=== PATIENT | female | born 1960 | race Caucasian/White ===

== ENCOUNTER → 2017-04-11 13:49 | Emergency (ER) | payer OTHER ==
--- NOTE | 2017-04-11 14:35 | RAD ---
HISTORY: Palpitation COMPARISONS: None VIEWS: 1: frontal portable view of the chest at 2:22 PM FINDINGS: LINES AND TUBES: None. CARDIOMEDIASTINAL SILHOUETTE: The cardiomediastinal silhouette is normal for portable technique. PLEURA: The costophrenic angles are sharp. No pleural abnormalities are noted. LUNG PARENCHYMA: The lungs are clear. ABDOMEN: The upper abdomen is clear. There is no subphrenic gas. BONES AND SOFT TISSUES: No bone or soft tissue abnormalities are noted. IMPRESSION: NO ACTIVE CARDIOPULMONARY DISEASE.
[2017-04-11 14:59] LABS: Hematocrit 41 % (35-47); Mean Corpuscular HGB Conc 34 g/dl (31-36); Mean Corpuscular Hemoglobin 32 pg (27-31); Mean Corpuscular Volume 92 fL (80-97); Mean Platelet Volume 10 um3 (7.4-10.4); Red Blood Count 4.39 10^6/ul (4.0-5.4); Red Cell Distribution Width 14 % (10.5-15); White Blood Count 5.9 10^3/ul (3.5-10.8)
[2017-04-11 15:16] LABS: Albumin 3.9 g/dL (3.2-5.2); Calcium 9.4 mg/dL (8.6-10.3); EGFR African American 78.8 (>60); EGFR Non-African American 61.3 (>60); Globulin 2.7 g/dL (2-4); Potassium 3.8 mmol/L (3.5-5.0); Total Bilirubin 0.6 mg/dL (0.2-1.0); Total Protein 6.6 g/dL (6.4-8.9)
[2017-04-11 15:17] LABS: Troponin I 0.03 ng/mL (<0.04)
--- NOTE | 2017-04-11 15:34 | ED ---
Aundrea Sierra Thomas, scribed for Katheryn Walters MD on 04/11/17 at 1511 . Palpitations / Dysrhythmia - HPI Summary HPI Summary: The pt is a 56 y/o F presenting to the ED c/o palpitations characterized as racing that occurred last night at 22:00. She was seen at her PMD this AM, who referred her to [facility] where bloodwork showed a troponin of 0.04. She did not wake up with palpitations. She wears a FitBit and the patient says that her heartrate was 144 BPM last night. Per her FitBit data, these palpitations continued throughout the night. She notes a flutter once in a while prior to yesterday. In the ED, her heartrate is 73 BPM. Pt additionally c/o nausea and dizziness yesterday when the palpitations occurred. Pt denies SOB, CP, and diaphoresis. She did have a few gins last night. She notes that in the past when she drinks her HR does tend to increase. - History of Current Complaint Chief Complaint: EDDysrhythmPalp Time Seen by Provider: 04/11/17 14:08 Hx Obtained From: Patient Onset/Duration: Lasting Days - onset last night at 22:00 and continued through the night, Resolved Timing: Constant Character: Fast - at 144 BPM Aggravating: Nothing Alleviating: Nothing Associated Signs & Symptoms: Dizzy - yesterday, Nausea - yesterday Related History: Similar Episode/Dx as - She does note "a flutter once in a while" prior to yesterday PMH/Surg Hx/FS Hx/Imm Hx Previously Healthy: Yes Cardiovascular History: Denies: Hx Myocardial Infarction Respiratory History: Denies: Hx Chronic Obstructive Pulmonary Disease (COPD) Infectious Disease History: Yes Infectious Disease History: Denies: Traveled Outside the [place] in Last 30 Days - Family History Known Family History: Negative: Cardiac Disease - Social History Lives: With Family Alcohol Use: Weekly - although use tends to be in binges Hx Substance Use: No Substance Use Type: Reports: None Hx Tobacco Use: No Smoking Status (MU): Never Smoked Tobacco Review of Systems Negative: Skin Diaphoresis Positive: Palpitations - fast, 144 BPM, onset last night and through the night but resolved in the ED. Negative: Chest Pain Negative: Shortness Of Breath Positive: Nausea - yesterday and none today Neurological: Other - Dizziness yesterday and none today All Other Systems Reviewed And Are Negative: Yes Physical Exam Triage Information Reviewed: Yes Vital Signs On Initial Exam: Initial Vitals Temp Pulse Resp BP Pulse Ox 97.7 F 73 16 151/97 100 04/11/17 13:51 04/11/17 13:51 04/11/17 13:51 04/11/17 13:51 04/11/17 13:51 Vital Signs Reviewed: Yes Appearance: Positive: Well-Appearing, No Pain Distress Skin: Positive: Warm, Skin Color Reflects Adequate Perfusion, Dry Eyes: Positive: EOMI, AMNA ENT: Positive: Pharynx normal, TMs normal Neck: Positive: Supple, Nontender Respiratory/Lung Sounds: Positive: Clear to Auscultation, Breath Sounds Present. Negative: Rales, Rhonchi, Wheezes Cardiovascular: Positive: RRR, Other - No gallop. Negative: Murmur, Rub Abdomen Description: Positive: Nontender, Soft. Negative: Distended, Guarding, Other: - No rebound Bowel Sounds: Positive: Present Musculoskeletal: Positive: Strength/ROM Intact. Negative: Edema Left, Edema Right Neurological: Positive: Sensory/Motor Intact, Alert, Oriented to Person Place, Time, CN Intact II-III Psychiatric: Positive: Affect/Mood Appropriate - Gemini Coma Scale Coma Scale Total: 15 Diagnostics - Vital Signs Vital Signs Temp Pulse Resp BP Pulse Ox 04/11/17 13:51 97.7 F 73 16 151/97 100 - Laboratory Lab Results: Lab Results 04/11/17 Range/Units 14:49 WBC 5.9 (3.5-10.8) 10^3/ul RBC 4.39 (4.0-5.4) 10^6/ul Hgb 14.0 (12.0-16.0) g/dl Hct 41 (35-47) % MCV 92 (80-97) fL MCH 32 H (27-31) pg MCHC 34 (31-36) g/dl RDW 14 (10.5-15) % Plt Count 172 (150-450) 10^3/ul MPV 10 (7.4-10.4) um3 Neut % (Auto) 57.5 (38-83) % Lymph % (Auto) 30.5 (25-47) % [place] % (Auto) 9.7 H (1-9) % Eos % (Auto) 1.8 (0-6) % Baso % (Auto) 0.5 (0-2) % Absolute Neuts (auto) 3.4 (1.5-7.7) 10^3/ul Absolute Lymphs (auto) 1.8 (1.0-4.8) 10^3/ul Absolute Monos (auto) 0.6 (0-0.8) 10^3/ul Absolute Eos (auto) 0.1 (0-0.6) 10^3/ul Absolute Basos (auto) 0 (0-0.2) 10^3/ul Absolute Nucleated RBC 0.01 10^3/ul Nucleated RBC % 0.1 Result Diagrams: 04/11/17 14:49 04/11/17 14:49 Lab Statement: Any lab studies that have been ordered have been reviewed, and results considered in the medical decision making process. - Radiology CXR Xray Interpretation: No Acute Changes - No active cardiopulmonary disease. ED physician has reviewed this report and agrees. Radiology Interpretation Completed By: Radiologist - EKG 14:02 Cardiac Rate: NL - 66 BPM EKG Interpretation: Normal EKG. Course/Dx - Course Course Of Treatment: 56 yo sent by her pmd after a trop of .04. she had palpitations during the night and when she looked at her fit bit in the am she noted sustained rates of 140's. She is assymptomatic now normal ekg normal cxr and labs and trop is .03. She already has close followup with her pmd for a holter monitor and cardiolgist - Diagnoses Provider Diagnoses: Palpitations Discharge - Discharge Plan Condition: Stable Disposition: HOME Patient Education Materials: Palpitations (ED) Referrals: Sage CORNELIUS,Wyatt Abdi [Primary Care Provider] - 2 Days The documentation as recorded by the Aundrea barros Thomas accurately reflects the service I personally performed and the decisions made by me, Katheryn Walters MD.
[2017-04-11 15:51] LABS: TSH (Thyroid Stimulating Horm) 1.86 mcIU/mL (0.34-5.60)
[2017-04-11 16:09] VITALS: BP 141/77
== END | disposition home or self-care (01) ==
LOC: ED 13:49
DX: R00.2 Palpitations (principal)
CPT/HCPCS: 36415; 71010; 80053; 84443; 84484; 85025; 93005; 99282

== ENCOUNTER 2017-04-13 22:24 | Observation (INO) | payer OTHER ==
[2017-04-14] MEDS ORDERED: Aspirin Low Dose CHEW TAB* 81 MG PO ONE (00:01)
[2017-04-14 00:46] LABS: Hematocrit 38 % (35-47); Hemoglobin 13.2 g/dl (12.0-16.0); Mean Corpuscular HGB Conc 34 g/dl (31-36); Mean Corpuscular Hemoglobin 32 pg (27-31); Mean Corpuscular Volume 92 fL (80-97); Mean Platelet Volume 10 um3 (7.4-10.4); Red Blood Count 4.19 10^6/ul (4.0-5.4); Red Cell Distribution Width 13 % (10.5-15); White Blood Count 5.3 10^3/ul (3.5-10.8)
[2017-04-14 01:02] LABS: Albumin 3.9 g/dL (3.2-5.2); BUN/Creatinine Ratio 17.1 (8-20); Calcium 9.3 mg/dL (8.6-10.3); EGFR African American 93.4 (>60); EGFR Non-African American 72.6 (>60); Globulin 2.7 g/dL (2-4); Potassium 3.9 mmol/L (3.5-5.0); Total Bilirubin 0.5 mg/dL (0.2-1.0); Total Protein 6.6 g/dL (6.4-8.9)
[2017-04-14 01:03] LABS: Troponin I 0.02 ng/mL (<0.04)
--- NOTE | 2017-04-14 01:04 | ED ---
Eduin Sierra Angela, scribed for Deni Melchor on 04/14/17 at 0016 . HPI Chest Pain - HPI Summary HPI Summary: This pt is a 56 y/o female presenting to [facility] c/o chest pain today. Pt reports she was seen in the ED 3 days ago for high heart rate and positive heart enzymes. Pt denies nausea, vomiting, SOB. She denies pain with deep breathing. Pt currently has no chest pain. Pt has no hx of smoking. No FHx of cardiac disease. - History of Current Complaint Chief Complaint: EDChestPainROMI Time Seen by Provider: 04/13/17 23:45 Hx Obtained From: Patient Onset/Duration: Started Hours Ago Timing: Lasting Hours Pain Intensity: 0 Pain Scale Used: 0-10 Numeric Chest Pain Location: Diffuse Chest Pain Radiates: No Aggravating Factor(s): Nothing Alleviating Factor(s): Spontaneous Resolution Associated Signs and Symptoms: Positive: Chest Pain. Negative: Headaches, Weakness, Shortness of Breath, Fever, Chills, Abdominal Pain - Allergy/Home Medications Allergies/Adverse Reactions: Allergies Allergy/AdvReac Type Severity Reaction Status Date / Time No Known Allergies Allergy Verified 04/13/17 22:39 PMH/Surg Hx/FS Hx/Imm Hx Endocrine/Hematology History: Denies: Hx Diabetes Cardiovascular History: Denies: Hx Hypertension, Hx Myocardial Infarction Respiratory History: Denies: Hx Chronic Obstructive Pulmonary Disease (COPD) Infectious Disease History: No Infectious Disease History: Denies: Traveled Outside the [place] in Last 30 Days - Family History Known Family History: Negative: Cardiac Disease - Social History Alcohol Use: Weekly Hx Substance Use: No Substance Use Type: Reports: None Hx Tobacco Use: No Smoking Status (MU): Never Smoked Tobacco Review of Systems Negative: Fever, Chills Positive: Chest Pain - now resolved Negative: Shortness Of Breath Negative: Vomiting, Diarrhea, Nausea Genitourinary: Negative Skin: Negative Negative: Headache, Weakness, Paresthesia All Other Systems Reviewed And Are Negative: Yes Physical Exam Triage Information Reviewed: Yes Vital Signs On Initial Exam: Initial Vitals Temp Pulse Resp BP Pulse Ox 97.7 F 54 16 158/87 100 04/13/17 22:39 04/13/17 22:39 04/13/17 22:39 04/13/17 22:39 04/13/17 22:39 Vital Signs Reviewed: Yes Appearance: Positive: Well-Appearing, No Pain Distress Skin: Positive: Warm, Skin Color Reflects Adequate Perfusion, Dry Head/Face: Positive: Normal Head/Face Inspection Eyes: Positive: EOMI, AMNA ENT: Positive: Normal ENT inspection Neck: Positive: Supple, Nontender Respiratory/Lung Sounds: Positive: Clear to Auscultation, Breath Sounds Present Cardiovascular: Positive: RRR, Pulses are Symmetrical in both Upper and Lower Extremities Abdomen Description: Positive: Nontender, Soft Bowel Sounds: Positive: Present Musculoskeletal: Positive: Normal, Strength/ROM Intact Neurological: Positive: Normal, Sensory/Motor Intact, Alert, Oriented to Person Place, Time - [place] Coma Scale Coma Scale Total: 15 Diagnostics - Vital Signs Vital Signs Temp Pulse Resp BP Pulse Ox 04/13/17 23:06 53 99 04/13/17 23:05 155/81 04/13/17 22:39 97.7 F 54 16 158/87 100 - Laboratory Result Diagrams: 04/14/17 00:20 04/14/17 00:20 Lab Statement: Any lab studies that have been ordered have been reviewed, and results considered in the medical decision making process. - Radiology Chest XR Xray Interpretation: No Acute Changes - Chest XR is negative. Radiology Interpretation Completed By: ED Physician - EKG 3077 Cardiac Rate: Bradycardia EKG Rhythm: Sinus Rhythm EKG Interpretation: No acute changes Chest Pain Course/Dx - Course Assessment/Plan: Pt is a 56 y/o female presenting to [facility] c/o chest pain today. Elevated BP noted. Bloodwork, EKG, and chest XR were obtained. Chest XR is negative. I discussed the pt's case with Dr. English. He will admit the pt. - Diagnoses Provider Diagnoses: Chest pain, rule out acute myocardial infarction - Provider Notifications Discussed Care Of Patient With: Vivek English Instructed by Provider To: Other - I discussed the pt's case with Dr. English. he will admit the pt. Discharge - Discharge Plan Condition: Stable Disposition: ADMITTED TO [facility] Referrals: Sage CORNELIUS,Wyatt Abdi [Primary Care Provider] - The documentation as recorded by the Eduin barros Angela accurately reflects the service I personally performed and the decisions made by , Deni Melchor.
[2017-04-14] MEDS ORDERED: traMADol TAB* 50 MG PO PRN (04:11)
[2017-04-14] MEDS ORDERED: Acetaminophen TAB* 325 MG PO PRN (04:11)
[2017-04-14] MEDS ORDERED: Ondansetron INJ* 2 MG/ML VIAL IV PRN (04:11)
--- NOTE | 2017-04-14 04:38 | HP ---
H&P (Free Text) History and Physical: PCP: Iqra Cazares MD Date/Time: 04/14/2017 0430 CC: chest pain HPI: Mrs Kumar is a 56YO obese female who was seen by her PCP Friday for palpitations she experienced on . Lab draw from that visit revealed an elevated troponin prompting referral to [facility] where troponin was rechecked, found to be negative, and she was discharged. Yesterday she awoke with (not from ) non-exertional dull L superior chest discomfort radiating into the L shoulder and R superior chest. The pain has been mild to mod, continuous, but waxing and waning all day. There have been no exacerbating or alleviating factors. She denies SOB, nausea, further palpitations, light-headedness, or sweats. PMedHx denies Medications Nursing to reconcile. Allergies No Known Allergies Allergy (Verified 04/13/17 22:39) PSurgHx SocHx: no tobacco, 2 alcoholic drinks weekly, no recreational drugs; lives with her ; works as a teacher for [employer]; full code status FamHx: Mother passed of a cerebral aneurysm rupture at age 64. Father is alive at 83 with HTN & AFIB. Brother has HTN. Sister has HLD. ROS: as above, otherwise reviewed and all were negative vitals: Vital Signs Temp 36.5 C 04/13/17 22:39 Pulse 53 04/14/17 03:00 Resp 19 04/14/17 03:00 BP 111/69 04/14/17 03:00 Pulse Ox 95 04/14/17 03:00 Intake & Output 04/13/17 04/13/17 04/14/17 11:59 23:59 11:59 Weight 108.409 kg Constitutional: NAD, normally developed, obese white female HEENM: atraumatic; sclera/conjunctiva: non-icteric/clear OD/injected OS; blephara: normal; hearing: clinically intact; oropharynx: clear, mucosa moist Neck: soft tissue: non-tender; thyroid: normal Pulmonary: clear to auscultation bilaterally, good aeration, no accessory muscle use CV: RR/RR, normal S1S2, no carotid bruit, no jugular venous distention, 2+ B DP/ PT, trace BLE edema Abdominal: soft, non-distended, non-tender, no rebound/guarding/rigidity, normoactive bowel sounds, no hepatosplenomegaly or masses, no costovertebral angle tenderness Musculoskeletal: general: grossly intact; gait: stable Integumental: normal appearance and texture of exposed skin Psychiatric orientation: AA&O to PPS affect: calm mood: cooperative eye contact: fair content: reliable responses: timely insight: good Testing: Lab Results 04/14/17 04/14/17 04/14/17 Range/Units 00:20 00:20 00:20 WBC 5.3 (3.5-10.8) 10^3/ul RBC 4.19 (4.0-5.4) 10^6/ul Hgb 13.2 (12.0-16.0) g/dl Hct 38 (35-47) % MCV 92 (80-97) fL MCH 32 H (27-31) pg MCHC 34 (31-36) g/dl RDW 13 (10.5-15) % Plt Count 169 (150-450) 10^3/ul MPV 10 (7.4-10.4) um3 Neut % (Auto) 58.1 (38-83) % Lymph % (Auto) 31.8 (25-47) % [place] % (Auto) 7.2 (1-9) % Eos % (Auto) 2.5 (0-6) % Baso % (Auto) 0.4 (0-2) % Absolute Neuts (auto) 3.1 (1.5-7.7) 10^3/ul Absolute Lymphs (auto) 1.7 (1.0-4.8) 10^3/ul Absolute Monos (auto) 0.4 (0-0.8) 10^3/ul Absolute Eos (auto) 0.1 (0-0.6) 10^3/ul Absolute Basos (auto) 0 (0-0.2) 10^3/ul Absolute Nucleated RBC 0 10^3/ul Nucleated RBC % 0.1 INR (Anticoag Therapy) (0.89-1.11) APTT (26.0-36.3) seconds Sodium 139 (133-145) mmol/L Potassium 3.9 (3.5-5.0) mmol/L Chloride 107 (101-111) mmol/L Carbon Dioxide 26 (22-32) mmol/L Anion Gap 6 (2-11) mmol/L BUN 14 (6-24) mg/dL Creatinine 0.82 (0.51-0.95) mg/dL Est GFR ( Amer) 93.4 (>60) Est GFR (Non-Af Amer) 72.6 (>60) BUN/Creatinine Ratio 17.1 (8-20) Glucose 99 (70-100) mg/dL Lactic Acid (0.5-2.0) mmol/L Calcium 9.3 (8.6-10.3) mg/dL Total Bilirubin 0.50 (0.2-1.0) mg/dL AST 25 (13-39) U/L ALT 31 (7-52) U/L Alkaline Phosphatase 48 (34-104) U/L Troponin I 0.02 (<0.04) ng/mL B-Natriuretic Peptide 45 ( - 100) pg/mL Total Protein 6.6 (6.4-8.9) g/dL Albumin 3.9 (3.2-5.2) g/dL Globulin 2.7 (2-4) g/dL Albumin/Globulin Ratio 1.4 (1-3) 04/14/17 04/14/17 04/14/17 Range/Units 00:20 00:20 03:35 WBC (3.5-10.8) 10^3/ul RBC (4.0-5.4) 10^6/ul Hgb (12.0-16.0) g/dl Hct (35-47) % MCV (80-97) fL MCH (27-31) pg MCHC (31-36) g/dl RDW (10.5-15) % Plt Count (150-450) 10^3/ul MPV (7.4-10.4) um3 Neut % (Auto) (38-83) % Lymph % (Auto) (25-47) % [place] % (Auto) (1-9) % Eos % (Auto) (0-6) % Baso % (Auto) (0-2) % Absolute Neuts (auto) (1.5-7.7) 10^3/ul Absolute Lymphs (auto) (1.0-4.8) 10^3/ul Absolute Monos (auto) (0-0.8) 10^3/ul Absolute Eos (auto) (0-0.6) 10^3/ul Absolute Basos (auto) (0-0.2) 10^3/ul Absolute Nucleated RBC 10^3/ul Nucleated RBC % INR (Anticoag Therapy) 0.86 L (0.89-1.11) APTT 26.8 (26.0-36.3) seconds Sodium (133-145) mmol/L Potassium (3.5-5.0) mmol/L Chloride (101-111) mmol/L Carbon Dioxide (22-32) mmol/L Anion Gap (2-11) mmol/L BUN (6-24) mg/dL Creatinine (0.51-0.95) mg/dL Est GFR ( Amer) (>60) Est GFR (Non-Af Amer) (>60) BUN/Creatinine Ratio (8-20) Glucose (70-100) mg/dL Lactic Acid 0.7 (0.5-2.0) mmol/L Calcium (8.6-10.3) mg/dL Total Bilirubin (0.2-1.0) mg/dL AST (13-39) U/L ALT (7-52) U/L Alkaline Phosphatase (34-104) U/L Troponin I 0.02 (<0.04) ng/mL B-Natriuretic Peptide ( - 100) pg/mL Total Protein (6.4-8.9) g/dL Albumin (3.2-5.2) g/dL Globulin (2-4) g/dL Albumin/Globulin Ratio (1-3) ECG, personally reviewed: sinus bradycardia rate 56, no ischemia, isolated lead III T-wave inversion CXR, personally reviewed: no acute process Impression: 56F presenting with chest pain for r/o ACS DIAGNOSIS & PLAN Primary chest pain r/o ACS : aspirin : hold beta-ry 2nd bradycardia : supplemental oxygen : telemetry : trend troponin : exercise stress test in AM : consider cardiology consult pending above results : supportive care Admission Rational: CDU observation for r/o ACS DVTp: heparin SQ Code Status: full HCP:
[2017-04-14] MEDS ORDERED: Omeprazole CAP* 20 MG PO SCH (06:00)
[2017-04-14 06:48] LABS: HDL Cholesterol 40.9 mg/dL
[2017-04-14 06:51] LABS: Troponin I 0.02 ng/mL (<0.04)
--- NOTE | 2017-04-14 07:48 | RAD ---
HISTORY: Chest pain COMPARISONS: April 11, 2017 VIEWS: 1: frontal portable view of the chest at 12:24 AM FINDINGS: LINES AND TUBES: None. CARDIOMEDIASTINAL SILHOUETTE: The cardiomediastinal silhouette is normal for portable technique. PLEURA: The costophrenic angles are sharp. No pleural abnormalities are noted. LUNG PARENCHYMA: The lungs are clear. ABDOMEN: The upper abdomen is clear. There is no subphrenic gas. BONES AND SOFT TISSUES: No bone or soft tissue abnormalities are noted. IMPRESSION: NO ACTIVE CARDIOPULMONARY DISEASE.
[2017-04-14 12:06] VITALS: BP 138/79
[2017-04-15] MEDS ORDERED: Heparin VIAL(*) 5000 UNITS/ML VIAL (FIVE THOUSAND) SUBCUT SCH (06:00)
[2017-04-15] MEDS ORDERED: Aspirin EC Low Dose* 81 MG TAB.EC PO SCH (09:00)
--- NOTE | 2017-04-15 09:46 | DS ---
CC: Dr. Cazares* DISCHARGE SUMMARY: DATE OF ADMISSION: 04/14/17 DATE OF DISCHARGE: 04/14/17 PRIMARY CARE PROVIDER: Dr. Cazares. PRIMARY DIAGNOSIS: Chest pain. SECONDARY DIAGNOSIS: None. PERTINENT LABORATORY DATA: Troponin I 0.02 on three consecutive checks. Cholesterol 162, LDL 91, HDL 40.9, triglycerides 151. MEDICATIONS ON DISCHARGE: None. PROCEDURES PERFORMED DURING HOSPITAL STAY: Exercise EKG stress test. Conclusion: Baseline mild hypertension with mildly hypertensive response to exercise noted. Low risk Costello score, regular stress test with mild abnormal ST changes on baseline EKG. More definite assessment is needed, could consider adding nuclear echo imaging to exercise. HISTORY OF PRESENT ILLNESS AND HOSPITAL COURSE: A 56-year-old female with trace palpitation two days prior to presentation, was referred to be seen for a lab follow up and had an elevated troponin, prompted a referral to [facility], where repeat troponin was negative. The day prior to presentation this time, she awoke from sleep had chest pain, referred to left shoulder. Again presented to the hospital and admitted to the hospital. Had three negative troponins and exercise stress test with EKG that was interpreted as low risk. The patient feels well on day of discharge. She has had no associated symptoms with chest pain in the past. At this point, she seems low risk for pulmonary embolism or costochondritis or acute myocardial infarction. Contributing factors are stress and patient's time as well as potentially GERD. We did discuss starting antihypertensives. However, she wished to follow up Dr. Cazares and discuss this further prior to discharge. AT FOLLOWUP PLEASE: 1. absence of chest pain. 2. Consider starting antihypertensives. Blood pressure remains elevated. 3. No other specific labs or vitals that need followup. Reasons to return to the hospital include but not limited to recurrent or worsening symptoms including recurrent chest pain, worsening chest pain, prolonged chest pain, chest pain associated with any other symptoms, shortness of breath, lightheadedness, loss of consciousness, near loss of consciousness, palpitations. Discussed with the patient and her . They acknowledged understanding. TIME SPENT: Greater than 60 minutes was spent on the discharge of this patient , greater than half of this was spent [id number] with the patient and her . [id number]/[facility] #: [id number] [facility]
== END 2017-04-14 16:00 | disposition home or self-care (01) ==
LOC: ED 22:24 → MEDTELE 04-14 04:10
PROVIDERS: ADMIT Hospitalist; ATTEND Internal Medicine
DX: R07.9 Chest pain, unspecified (principal); R74.8 Abnormal levels of other serum enzymes; R00.1 Bradycardia, unspecified
CPT/HCPCS: 36415; 71010; 80053; 80061; 83605; 83880; 84484; 85025; 85610; 85730; 93005; 99284; A9270-GY; G0378

== ENCOUNTER 2018-06-08 03:11 | Observation (INO) | payer BC, OTHER ==
[2018-06-08] MEDS ORDERED: Metoprolol Tartrate IV* 1 MG/ML 5 ML VIAL IV ONE ×4 (03:25→10:00)
[2018-06-08] MEDS ORDERED: NS 0.9% 1000 ML* 1,000 ML IV ONE ×2 (03:26→04:19)
[2018-06-08] MEDS ORDERED: Digoxin IV* 0.5 MG/2 ML AMP (0.25 MG/ML) IV SLOW PU ONE (03:26)
--- NOTE | 2018-06-08 03:28 | ED ---
HPI Cardiac - HPI Summary HPI Summary: Patient is a 57 y/o F w/ c/o palpitations onsetting about an hour ago. She also endorses slight chest pain and dizziness. Patient reports similar episode over a year ago and notes a handful of less severe episodes which resolved by themselves. She states she is on BP meds, beta ry and is unsure if she took her medications today. Patient went to sleep at 2100 last night and notes that she had three glasses of wine throughout the day. On triage, pain is rated 2/10, nothing is noted to aggravate/alleviate Sx. Home medications and allergies are reviewed. - History of Current Complaint Stated Complaint: CHEST PAIN Time Seen by Provider: 06/08/18 03:12 Hx Obtained From: Patient Onset/Duration: Started Hours Ago - about an hour ago, Still Present Timing: Constant, Lasting Hours - onset an hour ago Initial Severity: Mild Current Severity: Mild - 2/10 Pain Intensity: 2 Pain Scale Used: 0-10 Numeric - 2/10 Character: Other: - palpitations Aggravating Factor(s): Nothing Alleviating Factor(s): Nothing Associated Signs and Symptoms: Positive: Chest Pain, Dizziness, Palpitations - Allergy/Home Medications Allergies/Adverse Reactions: Allergies Allergy/AdvReac Type Severity Reaction Status Date / Time No Known Allergies Allergy Verified 06/08/18 03:49 Home Medications: Home Medications Lisinopril 5 mg PO DAILY 06/08/18 [History Confirmed 06/08/18] Metoprolol Tartrate TAB* [Lopressor TAB*] 12.5 mg PO BID 06/08/18 [History Confirmed 06/08/18] PMH/Surg Hx/FS Hx/Imm Hx Endocrine/Hematology History: Denies: Hx Diabetes Cardiovascular History: Denies: Hx Hypertension, Hx Myocardial Infarction Respiratory History: Denies: Hx Chronic Obstructive Pulmonary Disease (COPD) Sensory History: Reports: Hx Contacts or Glasses - to read Denies: Hx Hearing Aid Opthamlomology History: Reports: Hx Contacts or Glasses - to read - Family History Known Family History: Negative: Cardiac Disease - Social History Alcohol Use: Weekly Alcohol Amount: 8 drinks/weekly Hx Substance Use: No Substance Use Type: Reports: None Hx Tobacco Use: No Smoking Status (MU): Never Smoked Tobacco Review of Systems Positive: Palpitations, Chest Pain Neurological: Other - POSITIVE - DIZZINESS All Other Systems Reviewed And Are Negative: Yes Physical Exam - Summary Physical Exam Summary: VITAL SIGNS: Reviewed. GENERAL: Patient is a well-developed and nourished female who is lying comfortable in the stretcher. Patient is not in any acute respiratory distress. HEAD AND FACE: No signs of trauma. No ecchymosis, hematomas or skull depressions. No sinus tenderness. EYES: PERRLA, EOMI x 2, No injected conjunctiva, no nystagmus. EARS: Hearing grossly intact. Ear canals and tympanic membranes are within normal limits. MOUTH: Oropharynx within normal limits. NECK: Supple, trachea is midline, no adenopathy, no JVD, no carotid bruit, no c- spine tenderness, neck with full ROM. CHEST: Symmetric, no tenderness at palpation LUNGS: Clear to auscultation bilaterally. No wheezing or crackles. CVS: irregularly irregular, tachycardia, S1 and S2 present, no murmurs or gallops appreciated. ABDOMEN: Soft, non-tender. No signs of distention. No rebound no guarding, and no masses palpated. Bowel sounds are normal. EXTREMITIES: FROM in all major joints, no edema, no cyanosis or clubbing. NEURO: Alert and oriented x 3. No acute neurological deficits. Speech is normal and follows commands. SKIN: Dry and warm Triage Information Reviewed: Yes Vital Signs On Initial Exam: Initial Vitals Temp Pulse Resp BP Pulse Ox 98.0 F 169 24 175/85 99 06/08/18 03:16 06/08/18 03:16 06/08/18 03:16 06/08/18 03:16 06/08/18 03:16 Vital Signs Reviewed: Yes Diagnostics - Vital Signs Vital Signs Temp Pulse Resp BP Pulse Ox 06/08/18 03:16 98.0 F 169 24 175/85 99 - Laboratory Result Diagrams: 06/08/18 03:37 06/08/18 03:37 Lab Statement: Any lab studies that have been ordered have been reviewed, and results considered in the medical decision making process. - EKG 0320 Cardiac Rate: Other Rate - AFIB WITH RATE OF 157 BPM EKG Rhythm: Atrial Fibrillation ST Segment: Non-Specific Summary of EKG Findings: EKG SHOWED AFIB WITH RATE OF 157 BPM, NON-SPECIFIC ST WAVE CHANGES. Re-Evaluation - Re-Evaluation First Eval Re-Evaluation Time: 05:15 Comment: 0515 at time, patient remains in afib. Admission was discussed with patient. She is agreeable with admission. Disposition - Course Course Of Treatment: Patient is a 57 y/o F w/ c/o palpitations onsetting about an hour ago. She also endorses slight chest pain and dizziness. Patient reports similar episode over a year ago and notes a handful of less severe episodes which resolved by themselves. She states she is on BP meds, beta ry and is unsure if she took her medications today. Patient went to sleep at 2100 last night and notes that she had three glasses of wine throughout the day. On physical exam, patient is noted to be tachycardic and have an irregularly irregular rhythm. EKG SHOWED AFIB WITH RATE OF 157 BPM, NON-SPECIFIC ST WAVE CHANGES. Labs showed MCH 32, mono% 7.7, BUN/creatinine ratio 21.1, glucose 129 , lactic acid 2.7, trop 0.01, BNP 43, TSH 4.43, magnesium 1.8. During ED course , patient received fluids, Lopressor, Ativan, Lovenox, Diltiazem, and Digoxin. 0515 at time, patient remains in afib. Admission was discussed with patient. She is agreeable with admission. Patient's case was discussed with Dr. Minor. Dr. Minor accepts patient for admission. - Diagnoses Provider Diagnoses: Afib - Physician Notifications Discussed Care Of Patient With: Janiya Minor Time Discussed With Above Provider: 05:17 Instructed by Provider To: Other - Patient's case was discussed with Dr. Minor at 0517. Dr. Minor accepts patient for admission. Discharge - Sign-Out/Discharge Documenting (check all that apply): Patient Departure - admit - Discharge Plan Condition: Good Disposition: ADMITTED TO [facility] Referrals: Sage CORNELIUS,Wyatt Abdi [Primary Care Provider] - - Attestation Statements Document Initiated by Scribe: Yes Documenting Scribe: SABIHA GOLDBERG Provider For Whom Curt is Documenting (Include Credential): ISAURA HERMAN MD Scribe Attestation: SABIHA Sierra , scribed for ISAURA HERMAN MD on 06/08/18 at 0521.
[2018-06-08 03:46] LABS: ABS Basophils 0.1 10^3/ul (0-0.2); ABS Eosinophils 0.1 10^3/ul (0-0.6); ABS Lymphocytes 2.6 10^3/ul (1.0-4.8); ABS Monocytes 0.5 10^3/ul (0-0.8); ABS Neutrophils 2.8 10^3/ul (1.5-7.7); ABS Nucleated RBC 0 10^3/ul; Eosinophil % 1.8 % (0-6); Hematocrit 43 % (35-47); Hemoglobin 14.6 g/dl (12.0-16.0); Lymphocyte % 42.8 % (25-47); Mean Corpuscular HGB Conc 34 g/dl (31-36); Mean Corpuscular Hemoglobin 32 pg (27-31); Mean Corpuscular Volume 94 fL (80-97); Nucleated Red Blood Cells % 0.1; Platelet Count 179 10^3/ul (150-450); Red Blood Count 4.57 10^6/ul (4.00-5.40); Red Cell Distribution Width 14 % (10.5-15)
[2018-06-08] MEDS ORDERED: Metoprolol Tartrate IV* 1 MG/ML 5 ML VIAL ONE (03:52)
[2018-06-08 03:53] LABS: INR 0.85 (0.77-1.02)
[2018-06-08] MEDS ORDERED: LORazepam INJ* 2 MG/ML 1 ML VIAL IV PUSH ONE (04:03)
[2018-06-08] MEDS ORDERED: LORazepam TAB(*) 1 MG ONE (04:06)
[2018-06-08] MEDS ORDERED: Enoxaparin(*) 100 MG/ML SYR SUBCUT ONE (04:44)
[2018-06-08] MEDS ORDERED: Diltiazem IV* 5 MG/ML 5 ML VIAL (for loading dose/IV Push) (25 MG) IV SLOW PU ONE (04:44)
[2018-06-08] MEDS ORDERED: Diltiazem DRIP* 100 MG/100 ML ADDV.BAG IVPB ONE (05:01)
[2018-06-08] MEDS ORDERED: NS 0.9% 1000 ML* 1,000 ML IV SCH (05:30)
[2018-06-08] MEDS ORDERED: Diltiazem IV VIAL* 125 MG in NS 0.9% 100 ML* 100 ML IV SCH (06:00)
--- NOTE | 2018-06-08 06:21 | ADMNOTE ---
Subjective Date of Service: 06/08/18 Interval History: code status full this is admission h/p hpi this is a 57 yr old wf with hx of htn only presented with rapid hr 170-180 for half hour around 2 am ---> no hx of rapid a fib or a flutter but says she has intermittant rapid hr for the past two months multiple episodes ---> each episodes would last about one min. she recorded one episode that it lasted about 15 min during sleep but was recorded on her i watch---> she thought that it was because she has checked her blood pressure and hr very frequent as a cause and says that causes " a bit anxiety " ---> besides palpitation she does not have any associated symptoms. pt was found to be in rapid a fib got three doses of iv lopressor and iv dig 0.5 followed by cardizem 20 mg/cardizem drip 5 mg ---> increased to 8 mg by this check writer she also got one dose of ativan 1 mg ivp at 430 am she took her usual dose of lopressor at 2 am prior to arrival to er phx htn ?? 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 htn a fib Review of Systems - Measurements Intake and Output: Intake and Output Last 24 Hours 06/05/18 06/06/18 06/07/18 06/08/18 06:59 06:59 06:59 06:59 Intake Total 1999 Balance 1999 Weight 225 lb Intake: IV Fluids 1999 pertinent as per hpi Objective Active Medications: Enoxaparin Sodium (Lovenox(*)) 100 mg SUBCUT Q12H CARMINE Diltiazem HCl (Cardizem Iv Advan*) 100 mg in 100 mls @ 5 mls/hr IVPB ED ONCE ONE Stop: 06/09/18 01:00 Last Admin: 06/08/18 05:15 Dose: 5 mls/hr Sodium Chloride (Ns 0.9% 1000 Ml*) 1,000 mls @ 125 mls/hr IV PER RATE CARMINE Last Admin: 06/08/18 05:42 Dose: 125 mls/hr Diltiazem HCl (Cardizem Iv Advan*) 100 mg in 100 mls @ 8 mls/hr IVPB .PER PARAMETERS CARMINE; Protocol Vital Signs - 8 hr 06/08/18 06/08/18 06/08/18 03:15 03:16 03:28 Temperature 98.0 F Pulse Rate 148 152 130 Respiratory 14 18 Rate Blood Pressure 175/85 130/113 (mmHg) O2 Sat by Pulse 94 99 100 Oximetry 06/08/18 06/08/18 06/08/18 03:31 03:54 04:00 Temperature Pulse Rate 156 126 115 Respiratory 19 Rate Blood Pressure 132/104 (mmHg) O2 Sat by Pulse 95 98 Oximetry 06/08/18 06/08/18 06/08/18 04:08 04:13 04:26 Temperature Pulse Rate 119 117 Respiratory 20 20 20 Rate Blood Pressure 123/99 139/104 (mmHg) O2 Sat by Pulse 98 96 Oximetry 06/08/18 06/08/18 06/08/18 04:38 04:53 05:01 Temperature Pulse Rate 125 103 96 Respiratory 20 15 17 Rate Blood Pressure 128/100 113/85 (mmHg) O2 Sat by Pulse 93 96 93 Oximetry 06/08/18 06/08/18 06/08/18 05:08 05:24 05:29 Temperature Pulse Rate 96 122 129 Respiratory 21 13 20 Rate Blood Pressure 122/89 105/89 114/96 (mmHg) O2 Sat by Pulse 97 98 97 Oximetry 06/08/18 06/08/18 06/08/18 05:33 05:39 05:43 Temperature Pulse Rate 122 117 119 Respiratory 21 22 15 Rate Blood Pressure 118/89 117/85 125/90 (mmHg) O2 Sat by Pulse 98 99 98 Oximetry 06/08/18 05:54 Temperature Pulse Rate 132 Respiratory 19 Rate Blood Pressure 105/83 (mmHg) O2 Sat by Pulse 99 Oximetry Oxygen Devices in Use Now: None Appearance: nad Eyes: No Scleral Icterus, PERRLA Ears/Nose/Mouth/Throat: NL Teeth, Lips, Gums, Clear Oropharnyx, Mucous Membranes Moist, - Neck: NL Appearance and Movements; NL JVP, Trachea Midline, No Thyroid Enlargement, Masses Respiratory: Symmetrical Chest Expansion and Respiratory Effort, Clear to Auscultation Cardiovascular: - - s1 s2 irr irr tachycardiac Abdominal: NL Sounds; No Tenderness; No Distention, No Hepatosplenomegaly Extremities: No Edema, No Clubbing, Cyanosis, - - able to raise ue and le against gravity Skin: No Rash or Ulcers, No Nodules or Sclerosis Neurological: Alert and Oriented x 3, NL Sensation, NL Gait, NL Muscle Strength and Tone Result Diagrams: 06/08/18 03:37 06/08/18 03:37 EKG Data: ekg rapid a fib at rate 160s Assess/Plan/Problems-Billing Assessment: this is a 57 yr old wf with hx of htn prob paf for the past two months but undiagnosed presented to er with rapid a fib - Patient Problems (1) Rapid atrial fibrillation Current Visit: Yes Status: Acute Code(s): I48.91 - UNSPECIFIED ATRIAL FIBRILLATION SNOMED Code(s): 239995745 Comment: currently on cardizem 8 mg/hr may increase to 10 mg/hr + lovenox 1 mg/kg q12 continue her home dose of b blokcer as long as her sbp tolerates cardio consult in am will be called by this check writer echo to eval the la size tele with omega ck tsh/free t4 (2) HTN (hypertension) Current Visit: Yes Status: Acute Code(s): I10 - ESSENTIAL (PRIMARY) HYPERTENSION SNOMED Code(s): 14947529 Comment: sbp 100-110 on cardizem 8 mg/hr hold carlos a but continue home b ry (3) Glucose intolerance Current Visit: Yes Status: Acute Code(s): E74.39 - OTHER DISORDERS OF INTESTINAL CARBOHYDRATE ABSORPTION SNOMED Code(s): 68912269 Comment: ck a1c (4) Morbid obesity Current Visit: Yes Status: Acute Code(s): E66.01 - MORBID (SEVERE) OBESITY DUE TO EXCESS CALORIES SNOMED Code(s): 343778679 Comment: ck a1c and lipid (5) EtOH dependence Current Visit: Yes Status: Acute Code(s): F10.20 - ALCOHOL DEPENDENCE, UNCOMPLICATED SNOMED Code(s): 30098123 Comment: no signs of etoh withdraw mcv wnl will consume 2-3 glasses of wine 3-4 times per week
[2018-06-08] MEDS ORDERED: Diltiazem DRIP* 100 MG in NS 100 ML ADDV.BAG IVPB SCH (07:00)
[2018-06-08] MEDS ORDERED: Diltiazem DRIP* 100 MG/100 ML ADDV.BAG IVPB SCH (07:08)
[2018-06-08 08:25] LABS: ABS Basophils 0 10^3/ul (0-0.2); ABS Eosinophils 0 10^3/ul (0-0.6); ABS Lymphocytes 1.7 10^3/ul (1.0-4.8); ABS Monocytes 0.5 10^3/ul (0-0.8); ABS Nucleated RBC 0 10^3/ul; Eosinophil % 0.6 % (0-6); Hematocrit 42 % (35-47); Lymphocyte % 23.8 % (25-47); Mean Corpuscular HGB Conc 34 g/dl (31-36); Mean Corpuscular Hemoglobin 32 pg (27-31); Mean Corpuscular Volume 94 fL (80-97); Mean Platelet Volume 10.5 fL (7.4-10.4); Nucleated Red Blood Cells % 0; Platelet Count 172 10^3/ul (150-450); Red Blood Count 4.42 10^6/ul (4.00-5.40); Red Cell Distribution Width 14 % (10.5-15); White Blood Count 7.3 10^3/ul (3.5-10.8)
[2018-06-08 08:36] LABS: EGFR Non-African American 86.9 (>60)
[2018-06-08] MEDS ORDERED: Metoprolol Tartrate TAB* 25 MG PO SCH (09:00)
[2018-06-08] MEDS ORDERED: Apixaban* 5 MG TAB PO SCH (09:00)
--- NOTE | 2018-06-08 09:21 | ECHO ---
Patient: MONIQUE CORBIN Rec#: [id number] : 1960 Date: 06/08/2018 Age: 57y Height: 168 cm / 66.1 in Weight: 102 kg / 224.8 lbs Sex: F BSA: 2.11 Room#: 440 Admit Date#: 06/08/2018 Type: Inpatient Referring: Janiya Minor Reading: Walter Juarez MD Leather Fitter: Kandis Galvan RDCS,RDMS CC: LADELIA[facility]INCENT Transthoracic Echocardiogram Indication: AFIB BP: 113/82 HR: 134 Rhythm: A-Fib Findings History: HTN Technical Comments: The study quality is fair. Left Ventricle: The left ventricular chamber size is decreased. Moderate concentric left ventricular hypertrophy is observed. Global left ventricular wall motion and contractility are within normal limits. There is normal left ventricular systolic function. The estimated ejection fraction is 55-60%. The assessment of diastolic function is non-diagnostic. Left Atrium: The left atrium is mildly dilated. Right Ventricle: The right ventricular chamber size and systolic function are within normal limits. Right Atrium: The right atrial cavity size is normal. Aortic Valve: There is no evidence of aortic valve thickening. There is no evidence of aortic regurgitation. There is no evidence of aortic stenosis. Mitral Valve: The mitral valve leaflets appear normal. There is no evidence of mitral regurgitation. There is no evidence of mitral stenosis. Tricuspid Valve: The tricuspid valve structure is not well visualized. There is no evidence of tricuspid valve regurgitation. Unable to estimate the right ventricular systolic pressure. Pulmonic Valve: There is no evidence of pulmonic valve thickening. There is no evidence of pulmonic regurgitation. Pericardium: There is no significant pericardial effusion. Aorta: The aortic root appears normal. Pulmonary Artery: The main pulmonary artery appears normal. Venous: The inferior vena cava appears normal in size. There is a greater than 50% respiratory change in the inferior vena cava dimension. Summary: There was not any prior study for comparison. Conclusions Moderate concentric left ventricular hypertrophy is observed. Global left ventricular wall motion and contractility are within normal limits. There is normal left ventricular systolic function. The estimated ejection fraction is 55-60%. There is no evidence of aortic stenosis. There is no evidence of mitral regurgitation. There is no evidence of tricuspid valve regurgitation. Unable to estimate the right ventricular systolic pressure. There is no significant pericardial effusion. Measurements Name Value Normal Range RVIDd (AP) 2D 2.4 cm (0.9 - 2.6) RVDdMajor (2D) 2.9 cm (2.2 - 4.4) RAd ISD 4CH 4.5 cm (3.4 - 4.9) RA (A4C)W 3.6 cm (2.9 - 4.6) IVSd (2D) 1.5 cm (0.6 - 1) LVPWd (2D) 1.4 cm (0.6 - 1) LVIDd (2D) 3.3 cm (3.6 - 5.4) LVIDs (2D) 2.4 cm - LV FS (2D) 26 % (25 - 45) Aortic Annulus 2.1 cm (1.4 - 2.6) Ao root diameter (2D) 3 cm (2.1 - 3.5) Ascending Ao 2.9 cm (2.1 - 3.4) Aortic arch 2.7 cm (1.8 - 3.4) LA dimension (AP) 2D 4 cm (2.3 - 3.8) LAd ISD 4CH 5.5 cm (2.9 - 5.3) LA ISD 4CH W 4.6 cm (2.5 - 4.5) Name Value Normal Range LA ESV BP (A/L) index 29 ml/m2 - Name Value Normal Range MV E-wave Vmax 1.1 m/sec - MV deceleration time 82 msec - LV lateral e' Vmax 0.19 m/sec - LV E:e' lateral ratio 6 ratio - Name Value Normal Range AV Vmax 1.2 m/sec - AV peak gradient 6 mmHg - LVOT Vmax 0.9 m/sec - LVOT peak gradient 3 mmHg - PARVIZ Vmax 0.8 m/sec - Name Value Normal Range RAP 8 mmHg - IVC diameter 1.9 cm - Name Value Normal Range PV Vmax 0.7 m/sec - PV peak gradient 2 mmHg -
--- NOTE | 2018-06-08 14:52 | CONS ---
CC: Dr. Pendleton, [facility], [place], [place] * CARDIOLOGY CONSULTATION: DATE OF CONSULT: 06/08/18 INDICATION FOR CONSULT: Atrial fibrillation. HISTORY OF PRESENT ILLNESS: The patient is a 57-year-old female with a recent diagnosis of hypertension, who has been experiencing episodes of palpitations. The patient states for the past couple of months or so she has been feeling unwell. She says she thinks her blood pressure is out of control. She said occasionally she will feel palpitations. The patient does have an Apple Watch, which shows her heart rate and occasionally her heart rate will go from its baseline of 60 beats per minute up to 90 beats per minute and occasionally it will raise up to 120 beats per minute. Usually those episodes would last just a few minutes and then resolve on its own; however, last night she had an episode of tachycardia, it was registered on her phone as a heart rate of 140, and she decided to come to the emergency room. On arrival to the emergency room , she was in atrial fibrillation with rapid ventricular response. The patient was given IV beta-ry, IV Cardizem, and IV digoxin for heart rate control. When I had seen the patient earlier this morning, her heart rate was 120 on a Cardizem drip. The patient denied any chest pain. She denied any shortness of breath. She denied any lightheadedness or dizziness. The patient was recently diagnosed with hypertension and was started on metoprolol and lisinopril. PAST MEDICAL HISTORY: Other past medical history is significant for migraine headaches. PAST SURGICAL HISTORY: Unknown. OUTPATIENT MEDICATIONS: 1. Metoprolol tartrate 12.5 mg b.i.d. 2. Lisinopril 5 mg a day. ALLERGIES: No known drug allergies. FAMILY HISTORY: No family history of early coronary artery disease or cardiac arrhythmias. SOCIAL HISTORY: She is . She denies tobacco or alcohol use. She does not get regular exercise, although she is very active. REVIEW OF SYSTEMS: Negative for fevers or chills. Negative for changes in bowel or bladder habits. Negative for change in weight. Other 12-point review is unremarkable. PHYSICAL EXAM: Height is 5 feet 6 inches; weight 225 pounds; temperature 98.7; blood pressure 124/86; heart rate is 114 when I saw her this morning, it is currently 67 beats per minute; respiratory rate is 18; oxygen saturation 98% on room air. Sclerae anicteric. Oropharynx is pink without erythema. Carotids are 2+ without bruits. JVD is normal. Thyroid is normal. Cardiac Exam: S1, S2 without any murmurs, rubs, or gallops. Lungs are clear to auscultation bilaterally. There is no dullness to percussion. Abdomen is soft, nontender, nondistended with normoactive bowel sounds. Extremities show no edema. She has 2+ pulses throughout. The patient is awake, alert, and oriented. She moves all 4 extremities equally. DIAGNOSTIC STUDIES/LAB DATA: CBC within normal limits. Chemistries within normal limits. BUN 15, creatinine 0.7. Troponins are negative x2. Total cholesterol 206, LDL cholesterol 127. TSH 2.2. Echocardiogram showed normal LV size and systolic function. No significant valvular abnormalities. The patient reportedly had cardiac workup less than a year ago. At that time, she apparently had a stress test and an echocardiogram, both of which were unremarkable. IMPRESSION: This is a 57-year-old woman with a history of obesity, hypertension , paroxysms of palpitations, who was admitted to the hospital with atrial fibrillation. Again, the patient was in atrial fibrillation with rapid ventricular response. I had seen the patient earlier this morning and had talked to her about doing a transesophageal echocardiogram and cardioversion. Ultimately, the patient converted to normal sinus rhythm on her own. RECOMMENDATIONS: For now, my recommendation is the patient will be discharged home. The patient will be started on Pradaxa 150 mg b.i.d. I recommend that she increase her lisinopril to 10 mg a day and increase her metoprolol to 25 mg twice a day. The patient will be started on flecainide 50 mg b.i.d. for antiarrhythmic medication. The patient requests followup with Dr. Pendleton in [place] for her cardiac care. This case was discussed with Dr. Guajardo of the hospitalist service. [id number]/[facility] #: [id number] PETRONA
[2018-06-08 14:59] VITALS: BP 129/68
[2018-06-08] MEDS ORDERED: Enoxaparin(*) 100 MG/ML SYR SUBCUT SCH (18:00)
--- NOTE | 2018-06-09 20:33 | DS ---
DISCHARGE SUMMARY: DATE OF ADMISSION: 06/08/18 DATE OF DISCHARGE: 06/08/18 ADMITTING PROVIDER: Janiya Minor MD ATTENDING PHYSICIAN ON DISCHARGE: Seamus Guajardo MD CONSULTING INFORMATION TECH: Dr. Walter Juarez. OUTPATIENT INFORMATION TECH: Dr. Cezar Pendleton of [facility]. CHIEF COMPLAINT: Palpitations. PRINCIPAL DIAGNOSIS: Atrial fibrillation with rapid ventricular response. HISTORY OF PRESENT ILLNESS AND HOSPITAL COURSE: Dian Kumar is a 57-year-old female past who was recently diagnosed with hypertension who over the last few months has been experiencing episodes of palpitations which she is sometimes able to observe on her Apple watch, with readings up to 120 beats per minute. These usually lasted only for a few minutes and spontaneously resolved; but the night prior to admission was 140 and sustained. She presented to the [facility] Emergency Room, was found to be in atrial fibrillation with RVR and was given IV metoprolol and Cardizem and 0.5 of digoxin and then placed on a diltiazem drip. This controlled her rates and she ultimately spontaneously converted on hospital day#2 before planned LEONILA cardioversion later that day. She received an echocardiogram with preserved ejection fraction of 55% to 60%, diastolic dysfunction assessment was nondiagnostic. The left atrium was mildly dilated. No evidence of significant valvular dysfunction. The patient was seen in consultation with Dr. Walter Juarez, who recommended initiation of blood thinners. He had a discussion about the pros and cons, and she ultimately decided on Pradaxa given the newly approved reversal agent, Praxbind. He also recommended initiation of antiarrhythmic flecainide 50 mg b.i.d. and increase in her lisinopril to 10 mg daily and metoprolol to 25 mg b.i.d. He recommends close followup with Dr. Pendleton. She had a TSH of 4.4 and on repeat 2.29, and a free T4 of 0.76. LDL of 127, HDL of 56, troponins were negative x3, 0.01, 0.03, 0.03. DISCHARGE MEDICATIONS: Include: 1. Pradaxa 150 mg p.o. b.i.d. (new). 2. Flecainide 50 mg p.o. b.i.d. (new). 3. Lisinopril 10 mg daily (increased from 5 previously). 4. Metoprolol tartrate 25 mg p.o. b.i.d. (increased from 12.5 p.o. b.i.d.). FOLLOWUP: Please follow up with Dr. Cezar Pendleton, her outpatient ct mri technologist within 1-2 weeks, and also Dr. Wyatt Cazares, her primary care provider within 7 days of discharge TIME SPENT ON DISCHARGE: 35 minutes. [id number]/[facility] #: [id number] MTDD
== END 2018-06-08 16:10 | disposition home or self-care (01) ==
LOC: ED 03:11 → MEDTELE 05:20
PROVIDERS: ADMIT Internal Medicine; ATTEND Internal Medicine
DX: R00.2 Palpitations (principal); I48.91 Unspecified atrial fibrillation; R07.9 Chest pain, unspecified; R42 Dizziness and giddiness
CPT/HCPCS: 36415; 80048; 80053; 80061; 80162; 83036; 83605; 83735; 83880; 84439; 84443; 84484; 85025; 85610; 85730; 93005; 93306; 96361; 96365; 96366; 96375; 96376; 99285; A9270-GY; G0378; J1160; J1650; J2060; J3490